=== PATIENT | male | born 1965 | race Caucasian/White ===

== ENCOUNTER 2019-10-21 00:51 | Emergency (ER) | payer OTHER ==
[~2019-10-21] VITALS: Ht 177.8 cm; Wt 72.6 kg
--- NOTE | 2019-10-21 01:21 | NUR ---
Pt ambulated in ER with stable gait, alert and oriented x 4. Presents to ER for the c/o epigastric pain and left sided arm tingling x 20 mins with nausea. Pt placed on monitor. Safe environment implemented. Hx of non-alcoholic liver disease
[2019-10-21 01:27] LABS: CREATININE 1.1 mg/dL (0.6-1.3); POTASSIUM 3.4 mmol/L (3.5-5.1)
[2019-10-21 01:28] LABS: BASOPHILS % (AUTO) 0.6 % (0.0-2.0); EOSINOPHILS # (AUTO) 0.2 K/uL (0.0-0.7); HEMATOCRIT 43.4 % (36.7-47.1); HEMOGLOBIN 13.7 g/dL (12.5-16.3); LYMPHOCYTES # (AUTO) 4.7 K/uL (20.0-40.0); LYMPHOCYTES % (AUTO) 56.3 % (20.5-51.5); MEAN CORPUSCULAR HEMOGLOBIN 19.3 uug (23.8-33.4); MEAN CORPUSCULAR HGB CONC 31 g/dL (32.5-36.3); MEAN CORPUSCULAR VOLUME 61.2 fL (73.0-96.2); MONOCYTES # (AUTO) 0.7 K/uL (2.0-10.0); MONOCYTES % (AUTO) 8.3 % (0.0-11.0); NEUTROPHILS # (AUTO) 2.7 K/uL (1.8-8.9); NEUTROPHILS % (AUTO) 32.8 % (38.5-71.5); PLATELET COUNT (AUTO) 191 K/uL (152-348); WHITE BLOOD COUNT (AUTO) 8.4 K/uL (3.6-10.2)
[2019-10-21 01:31] LABS: RED BLOOD CELL COUNT(AUTO) 7.09 MIL/uL (4.06-5.63)
[2019-10-21 01:33] LABS: BILIRUBIN,DIRECT 0.1 mg/dL (0.0-0.2); BILIRUBIN,TOTAL 0.7 mg/dL (0.2-1.0); TOTAL PROTEIN, SERUM 7.3 g/dL (6.4-8.2)
[2019-10-21 02:00] LABS: NUCLEATED RED BLOOD CELLS 0.5 /100WBC
[2019-10-21] MEDS ORDERED: SWABABLE VALVE TRANSFER SET EA MC ONE (02:14)
[2019-10-21] MEDS ORDERED: IV NORMAL SALINE 250 ML IV ONE (02:15)
[2019-10-21] MEDS ORDERED: IOHEXOL 300MG/ML 100 ML INFUS..BTL ONE (02:15)
--- NOTE | 2019-10-21 03:57 | NUR ---
IV removed. Catheter intact and site benign. Pressure and 4x4 gauze applied to site. No bleeding noted.
--- NOTE | 2019-10-21 03:58 | NUR ---
Patient discharged to home in stable conditon. Written and verbal after care instructions given. Patient verbalizes understanding of instructions. Pt walked out of ER in stable gait with family. No acute distress. Appears in no apparent distress. Vital signs stable. Respirations even +unlabored.
[2019-10-21 03:59] VITALS: BP 129/71
[2019-10-21 04:36] LABS: EOSINOPHILS % (MANUAL) 2 % (0-8); LYMPHOCYTES % (MANUAL) 45 % (20-40); MONOCYTES % (MANUAL) 6 % (2-10); NEUTROPHILS % (MANUAL) 47 % (42-75)
== END 2019-10-21 03:59 | disposition home or self-care (01) ==
LOC: ER 00:51
DX: R10.9 Unspecified abdominal pain (principal); R20.2 Paresthesia of skin
CPT/HCPCS: 36415; 70450; 74177; 80048; 80076; 83690; 85007; 85025; 93005; 99284; Q9967; 70030-TC; A4663; J7050